=== PATIENT | male | born 1975 | race Caucasian/White ===

== ENCOUNTER 2016-10-30 09:37 | Emergency (ER) | payer SELFPAY ==
[~2016-10-30] VITALS: Ht 170.2 cm; Wt 80.6 kg
[~2016-10-30 09:37] MED LIST: DICL50 PO; MORP30SU PO
[2016-10-30 09:51] VITALS: BP 154/99; PULSE 73; RESP 18; TEMP 98.5; O2SAT 98
[2016-10-30] MEDS ORDERED: SULFAMETHOXAZOLE-TRIMETHOPRIM DS 800-160 MG TAB PO ONE (10:30)
[2016-10-30] MEDS ORDERED: KETOROLAC TROMETHAMINE 60 MG/2 ML (IM) VIAL IM ONE (10:30)
[2016-10-30] MEDS ORDERED: CEPHALEXIN MONOHYDRATE 500 MG CAP PO ONE (10:30)
[2016-10-30] MEDS ORDERED: ULTR50TA5 PO (10:47)
[2016-10-30] MEDS ORDERED: IBUP-232 PO (10:47)
[2016-10-30] MEDS ORDERED: BACT800T5 PO (10:47)
[2016-10-30] MEDS ORDERED: CEPH-460 PO (10:47)
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
[2016-10-31] MEDS ORDERED: METH40TA PO (02:56)
== END 2016-10-30 10:55 | disposition home or self-care (01) ==
LOC: PHED 09:37
DX: L02.01 Cutaneous abscess of face (principal); L03.211 Cellulitis of face
CPT/HCPCS: 96372; 99283; J1885

== ENCOUNTER 2016-10-31 02:39 | Observation (INO) | payer SELFPAY ==
[~2016-10-31] VITALS: Ht 170.2 cm; Wt 86.3 kg
[2016-10-31] VITALS (11 sets, daily range): BP systolic 102–164; BP diastolic 60–92; PULSE 55–98; RESP 14–18; TEMP 97–100.3; O2SAT 96–100
[~2016-10-31 02:39] MED LIST changes: +BACT800T5 PO; +CEPH-460 PO; -DICL50 PO; +IBUP-232 PO; -MORP30SU PO; +ULTR50TA5 PO
[2016-10-31] MEDS ORDERED: METH40TA PO (02:56)
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
[2016-10-31] MEDS ORDERED: ACETAMINOPHEN 325 MG TAB PO ONE (03:00)
[2016-10-31] MEDS ORDERED: SODIUM CHLOR 0.9% 1000 ML INJ 1,000 ML IV ONE ×2 (03:00→04:30)
[2016-10-31] MEDS ORDERED: CLINDAMYCIN INJ 900 MG in SODIUM CHLORIDE 0.9% INJ 100 ML IV ONE (03:00)
[2016-10-31] MEDS ORDERED: KETOROLAC TROMETHAMINE 30 MG/ML (IVP) VIAL IVP ONE (03:00)
[2016-10-31] MEDS ORDERED: SODIUM CHLORIDE 0.9% FLUSH 5 ML FLUSH IVF PRN ×2 (03:15→04:45)
[2016-10-31 03:20] LABS: AUTOMATED NEUTROPHIL # 10.2 TH/MM3 (1.8-7.7); BASOPHIL # 0.1 TH/MM3 (0-0.2); BASOPHIL % 0.8 % (0.0-2.0); EOSINOPHIL # 0.3 TH/MM3 (0-0.4); EOSINOPHIL % 1.8 % (0.0-4.0); HEMATOCRIT 40.7 % (39.0-51.0); LYMPH % 21.9 % (9.0-44.0); LYMPHOCYTE # 3.3 TH/MM3 (1.0-4.8); MEAN CELL VOLUME 83.3 FL (80.0-100.0); MEAN CORPUSCULAR HEMOGLOBIN 27.1 PG (27.0-34.0); MEAN CORPUSCULAR HGB CONC 32.5 % (32.0-36.0); MONO % 6.7 % (0.0-8.0); NEUT % 68.8 % (16.0-70.0); PLATELET COUNT 307 TH/MM3 (150-450); RED BLOOD COUNT 4.89 MIL/MM3 (4.50-5.90); RED CELL DISTRIBUTION WIDTH 14.4 % (11.6-17.2); WHITE BLOOD COUNT 14.9 TH/MM3 (4.0-11.0)
[2016-10-31 03:23] LABS: HEMO FLAGS AUTO DIFF
[2016-10-31 03:24] LABS: POTASSIUM 3.1 MEQ/L (3.5-5.1)
[2016-10-31 03:27] LABS: BICARBONATE 25.5 MEQ/L (21.0-32.0)
[2016-10-31 03:39] LABS: PLATELET ESTIMATE SMEAR NORMAL (NORMAL); PLATELET MORPHOLOGY CLUMPED (NORMAL); SCAN/DIFF AUTO DIFF CONFIRMED
[2016-10-31] MEDS ORDERED: IOHEXOL 350 MG/ML 10 ML VIAL (for RAD DIAG) IV ONE (04:09)
--- NOTE | 2016-10-31 04:28 | RADHPO ---
EXAM DATE/TIME: 10/31/2016 03:51 [facility] COMPARISON: No previous studies available for comparison. INDICATIONS : Left sided face and neck swelling. IV CONTRAST: 94 cc Omnipaque 350 (iohexol) IV RADIATION DOSE: 15.48 CTDIvol (mGy) MEDICAL HISTORY : Hypertension. SURGICAL HISTORY : None. ENCOUNTER: Initial ACUITY: 1 day PAIN SCALE: 8/10 LOCATION: Left neck TECHNIQUE: Volumetric scanning of the neck was performed. Using automated exposure control and adjustment of th e mA and/or kV according to patient size, radiation dose was kept as low as reasonably achievable to obtain optimal diagnostic quality images. FINDINGS: There is subcutaneous induration at the left side of the face, beginning superiorly in the left abelardo xillary region and along the edge of the nose and extending inferiorly along the left side of the man dible. Within the induration adjacent to the left mandible is a small low attenuation area that measu res about 6 x 8 mm in size, series 401 image 40. This is suspect for a small abscess in the superfici al margin is just a few millimeters beneath the skin. No other abscess seen but there is considerable obscuration of the area from the patient's metallic dental work. No bone destruction seen. Visualized paranasal sinuses are clear. No lymphadenopathy demonstrated. rway patent. Visualized lung apices are clear. CONCLUSION: Rather broad area of cellulitis of the left side of the face and with a subcentimeter superficial abs cess at the level of the mandible. Red Anderson MD on October 31, 2016 at 4:22 Board Certified Radiologist. This report was verified electronically.
[2016-10-31] MEDS ORDERED: VANCOMYCIN INJ 1,000 MG in SODIUM CHLOR 0.9% 250 ML INJ 250 ML IV ONE (04:30)
[2016-10-31] MEDS ORDERED: Vancomycin Consult Pharmacy 1 EA OTHER SCH (05:00)
[2016-10-31] MEDS ORDERED: ACETAMINOPHEN 325 MG TAB PO PRN (05:00)
[2016-10-31] MEDS ORDERED: ACETAMINOPHEN/HYDROcodone 325 MG/5 MG TAB PO PRN (05:00)
[2016-10-31] MEDS ORDERED: SODIUM CHLORIDE 0.9% FLUSH 5 ML FLUSH FLUSH PRN (05:00)
[2016-10-31] MEDS ORDERED: BISACODYL 10 MG SUPP PR PRN (05:00)
[2016-10-31] MEDS ORDERED: ONDANSETRON HCL 4 MG/2 ML VIAL IVP PRN (05:00)
[2016-10-31] MEDS: MORPHINE SULFATE 4 MG/ML INJ IV PRN ×5 (05:46→22:04)
[2016-10-31] MEDS: AMPICILLIN-SULBACTAM INJ 3 GM in SODIUM CHLORIDE 0.9% INJ 100 ML IV SCH ×4 (06:43→22:03)
[2016-10-31] MEDS: SODIUM CHLOR 0.9% 1000 ML INJ 1,000 ML IV SCH ×2 (07:20→22:03)
[2016-10-31] MEDS: SODIUM CHLORIDE 0.9% FLUSH 5 ML FLUSH FLUSH SCH ×2 (08:58→20:18)
[2016-10-31] MEDS ORDERED: SODIUM CHLORIDE 0.9% FLUSH 5 ML FLUSH IVF SCH (09:00)
[2016-10-31] MEDS ORDERED: METHADONE HCL 10 MG TAB PO SCH (09:00)
[2016-10-31] MEDS ORDERED: POTASSIUM CHLORIDE 10 MEQ CONTROLLED RELEASE TAB PO ONE (13:30)
--- NOTE | 2016-10-31 13:37 | HHI.HP ---
HPI Service [facility] Hospitalists Primary Care Physician No Primary Care Physician Admission Diagnosis (L) facial cellulitis, subcentimeter abscess Diagnoses: Chief Complaint: Facial swelling Travel History International Travel<30 Days: No Contact w/Intl Traveler <30 Da: No Traveled to Known Affected Are: No History of Present Illness Patient is a 40-year-old gentleman with history of skin infections who did come the hospital with 3 days of left facial swelling after an apparent pimple popped in his left side of his mouth. Patient says that he had increasing pain and swelling and took some antibiotics which were prescribed in the emergency room visit but noted that the swelling got worse so he came back to the emergency room. Patient did have a CT of the face which did show quite a bit of soft tissue swelling and a subcentimeter abscess which prompted the emergency room doctor to continue with plans for observation in the hospital and IV antibiotics. Patient had severe pain which was 10 out of 10 and relieved with IV morphine. He does use methadone and is prescribed this for methadone clinic. He has chronic neck pain had previously been on high doses of narcotics. He notes no fever or chills. He has a girlfriend with whom he lives with has similar rash underneath her arm where she shaves. His face does appear to have some follicular changes in the left side of his face around his good as well as a lot of inflammation and edema in the face leading up to the suborbital area. Patient's been recommended for further IV antibiotics Review of Systems Constitutional: DENIES: Diaphoretic episodes, Fatigue, Fever, Weight gain, Weight loss, Chills, Dizziness, Change in appetite, Night Sweats Endocrine: DENIES: Heat/cold intolerance, Polydipsia, Polyuria, Polyphagia Ears, nose, mouth, throat: DENIES: Tinnitus, Hearing loss, Vertigo, Nasal discharge, Oral lesions, Throat pain, Hoarseness, Ear Pain, Running Nose, Epistaxis, Sinus Pain, Toothache, Odynophagia Respiratory: DENIES: Apneas, Cough, Snoring, Wheezing, Hemoptysis, Sputum production, Shortness of breath Cardiovascular: DENIES: Chest pain, Palpitations, Syncope, Dyspnea on Exertion , PND, Lower Extremity Edema, Orthopnea, Claudication Gastrointestinal: DENIES: Abdominal pain, Black stools, Bloody stools, Constipation, Diarrhea, Nausea, Vomiting, Difficulty Swallowing, Anorexia Genitourinary: DENIES: Sexual dysfunction, Urinary frequency, Urinary incontinence, Urgency, Hematuria, Dysuria, Nocturia, Penile Discharge, Testicular Pain, Testicular Swelling Integumentary: DENIES: Abnormal pigmentation, Nail changes, Pruritus, Rash Hematologic/lymphatic: DENIES: Bruising, Lymphadenopathy Immunologic/allergic: DENIES: Eczema, Urticaria Neurologic: DENIES: Abnormal gait, Headache, Localized weakness, Paresthesias, Seizures, Speech Problems, Tremor, Poor Balance Psychiatric: DENIES: Anxiety, Confusion, Mood changes, Depression, Hallucinations, Agitation, Suicidal Ideation, Homicidal Ideation, Delusions Past Family Social History Past Medical History Chronic methadone Past Surgical History Dental Reported Medications reviewed in the EMR Allergies: Coded Allergies: Bee Sting (Verified Allergy, Severe, Anaphylaxis, 10/31/16) Active Ordered Medications reviewed in the EMR Family History Girlfriend has same skin changes Parents healthy Social History cocaine, tobacco Physical Exam Vital Signs Vital Signs Date Time Temp Pulse Resp B/P Pulse Ox O2 Delivery O2 Flow Rate FiO2 10/31/16 10:18 97.1 59 17 124/88 99 10/31/16 09:55 55 14 102/60 100 Room Air 10/31/16 09:21 98 21 10/31/16 07:00 64 18 121/67 100 Room Air 10/31/16 06:42 16 10/31/16 06:01 98 21 10/31/16 05:50 98.0 79 16 109/64 99 Room Air 10/31/16 04:34 97.9 65 16 119/63 Room Air 10/31/16 02:40 85 10/31/16 02:39 100.3 85 18 153/86 98 Physical Exam GENERAL: This is a well-nourished, well-developed patient, in no apparent distress. SKIN: left facial swelling, left crusting follicular lesion on side of mouth No rashes, ecchymoses or lesions. Cool and dry. HEAD: Atraumatic. Normocephalic. No temporal or scalp tenderness. EYES: Pupils equal round and reactive. Extraocular motions intact. No scleral icterus. No injection or drainage. ENT: Nose without bleeding, purulent drainage or septal hematoma. Throat without erythema, tonsillar hypertrophy or exudate. Uvula midline. Airway patent. NECK: Trachea midline. No JVD or lymphadenopathy. Supple, nontender, no meningeal signs. CARDIOVASCULAR: Regular rate and rhythm without murmurs, gallops, or rubs. RESPIRATORY: Clear to auscultation. Breath sounds equal bilaterally. No wheezes , rales, or rhonchi. GASTROINTESTINAL: Abdomen soft, non-tender, nondistended. No hepato-splenomegaly , or palpable masses. No guarding. MUSCULOSKELETAL: Extremities without clubbing, cyanosis, or edema. No joint tenderness, effusion, or edema noted. No calf tenderness. Negative Homans sign bilaterally. NEUROLOGICAL: Awake and alert. Cranial nerves II through XII intact. Motor and sensory grossly within normal limits. Five out of 5 muscle strength in all muscle groups. Normal speech. Laboratory Laboratory Tests Test 10/31/16 03:00 White Blood Count 14.9 Red Blood Count 4.89 Hemoglobin 13.3 Hematocrit 40.7 Mean Corpuscular Volume 83.3 Mean Corpuscular Hemoglobin 27.1 Mean Corpuscular Hemoglobin 32.5 Concent Red Cell Distribution Width 14.4 Platelet Count 307 Mean Platelet Volume 8.3 Neutrophils (%) (Auto) 68.8 Lymphocytes (%) (Auto) 21.9 Monocytes (%) (Auto) 6.7 Eosinophils (%) (Auto) 1.8 Basophils (%) (Auto) 0.8 Neutrophils # (Auto) 10.2 Lymphocytes # (Auto) 3.3 Monocytes # (Auto) 1.0 Eosinophils # (Auto) 0.3 Basophils # (Auto) 0.1 CBC Comment AUTO DIFF Differential Comment AUTO DIFF CONFIRMED Platelet Estimate NORMAL Platelet Morphology Comment CLUMPED Red Cell Morphology Comment NORMAL Sodium Level 139 Potassium Level 3.1 Chloride Level 104 Carbon Dioxide Level 25.5 Anion Gap 10 Blood Urea Nitrogen 11 Creatinine 0.98 Estimat Glomerular Filtration 84 Rate Random Glucose 99 Lactic Acid Level 1.2 Calcium Level 8.0 Date/Time Procedure Status Source Growth 10/31/16 03:07 Aerobic Blood Culture Received Blood Peripheral Pending 10/31/16 03:07 Anaerobic Blood Culture Received Blood Peripheral Pending 10/31/16 02:54 Gram Stain Received Wound Face Pending 10/31/16 02:54 Wound Culture Received Wound Face Pending Result Diagram: 10/31/1629910/31/16299 Imaging Last Impressions Neck CT 10/31/16302 Signed Impressions: Service Date/Time: Monday, October 31, 2016 03:51 - CONCLUSION: Rather broad area of cellulitis of the left side of the face and with a subcentimeter superficial abscess at the level of the mandible. Red Anderson MD Assessment and Plan Problem List: (1) Facial cellulitis ICD Code: L03.211 Status: Acute Plan: folliculitis and cellulitis, with small abscess likely strep/staph Continue Vanco, Unasyn, follow up cultures Continue pain medication with IV morphine for now Continue home methadone (2) Hypokalemia ICD Code: E87.6 Status: Acute Plan: Replace and follow trend Assessment and Plan Plan of care to be determined by Hospital course Discussed Condition With Patient, girlfriend, Catherine Olivo RN, MD Oct 31, 2016 13:37
[2016-10-31] MEDS ORDERED: NALOXONE HCL 0.4 MG/ML AMP IV PRN (17:00)
[2016-10-31] MEDS ORDERED: traMADol HCL 50 MG TAB PO PRN (17:00)
[2016-10-31] MEDS ORDERED: VANCOMYCIN 1,000 MG/NS 250 ML IV SCH ×2 (17:00)
[2016-11-01] MEDS ORDERED: INFLUENZA VIRUS VACCINE (QUADRIVALENT) 0.5 ML SYR IM ONE (10:00)
[2016-11-01] MEDS ORDERED: CLIN1CAP6 PO (16:40)
[2016-11-01] MEDS ORDERED: AUGM875T PO (16:40)
[2016-11-01] MEDS ORDERED: PHARMACY ORDERED LAB XX ONE (16:45)
== END 2016-10-31 22:35 | disposition left against medical advice (07) ==
LOC: PHED 02:39 → INTOOBSV 04:44 → PHEDA 04:44 → PHEDH 08:39 → PH3B 10:00
PROVIDERS: ADMIT Hospitalist; ATTEND Hospitalist
DX: L03.211 Cellulitis of face (principal); L73.9 Follicular disorder, unspecified; B95.62 Methicillin resistant Staphylococcus aureus infection as the cause of diseases classified elsewhere; E87.6 Hypokalemia; I10 Essential (primary) hypertension; F11.90 Opioid use, unspecified, uncomplicated; G89.29 Other chronic pain; M54.2 Cervicalgia; F32.9 Major depressive disorder, single episode, unspecified
CPT/HCPCS: 70491; 80048; 83605; 85025; 86403; 87040; 87070; 87186; 87205; 96361; 96365; 96375; 99285; G0378; J0295; J1885; J2270; J3370; J7030; J7050; Q9967

== ENCOUNTER 2016-11-01 14:05 | Inpatient (IN) | payer SELFPAY ==
[~2016-11-01] VITALS: Ht 170.2 cm; Wt 83.0 kg
[~2016-11-01 14:05] MED LIST changes: +METH40TA PO
[2016-11-01 14:08] VITALS: BP 163/93; PULSE 74; RESP 16; TEMP 99.2; O2SAT 100
[2016-11-01] MEDS ORDERED: SODIUM CHLOR 0.9% 1000 ML INJ 1,000 ML IV ONE ×2 (14:29)
[2016-11-01] MEDS ORDERED: VANCOMYCIN INJ 1,000 MG in SODIUM CHLOR 0.9% 250 ML INJ 250 ML IV STA (14:33)
[2016-11-01] MEDS ORDERED: AMPICILLIN-SULBACTAM INJ 3 GM in SODIUM CHLORIDE 0.9% INJ 100 ML IV ONE (14:45)
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
[2016-11-01 14:56] VITALS: O2SAT 98
[2016-11-01 14:56] LABS: AUTOMATED NEUTROPHIL # 5.1 TH/MM3 (1.8-7.7); BASOPHIL # 0.2 TH/MM3 (0-0.2); BASOPHIL % 2.5 % (0.0-2.0); EOSINOPHIL # 0.4 TH/MM3 (0-0.4); EOSINOPHIL % 4.9 % (0.0-4.0); HEMATOCRIT 38.4 % (39.0-51.0); HEMO FLAGS DIFF FINAL; LYMPH % 19.4 % (9.0-44.0); LYMPHOCYTE # 1.4 TH/MM3 (1.0-4.8); MEAN CELL VOLUME 82.5 FL (80.0-100.0); MEAN CORPUSCULAR HEMOGLOBIN 27.7 PG (27.0-34.0); MEAN CORPUSCULAR HGB CONC 33.5 % (32.0-36.0); MONO % 5.5 % (0.0-8.0); NEUT % 67.7 % (16.0-70.0); PLATELET COUNT 278 TH/MM3 (150-450); RED BLOOD COUNT 4.65 MIL/MM3 (4.50-5.90); RED CELL DISTRIBUTION WIDTH 13.6 % (11.6-17.2); WHITE BLOOD COUNT 7.5 TH/MM3 (4.0-11.0)
[2016-11-01 15:16] LABS: APTT (PATIENT) 30.8 SEC (24.3-30.1); INTERNATIONAL NORMALIZED RATIO 0.9 RATIO; PROTHROMBIN TIME - PATIENT 10.4 SEC (9.8-11.6)
[2016-11-01 15:24] LABS: CHLORIDE 108 MEQ/L (98-107); POTASSIUM 3.9 MEQ/L (3.5-5.1); SODIUM (NA) 144 MEQ/L (136-145)
[2016-11-01 15:39] LABS: ANION GAP 8 MEQ/L (5-15); BICARBONATE 28.2 MEQ/L (21.0-32.0); BLOOD UREA NITROGEN 9 MG/DL (7-18); MAGNESIUM 2.4 MG/DL (1.5-2.5)
[2016-11-01 15:42] LABS: ALT (GPT) 10 U/L (12-78); AST (GOT) 8 U/L (15-37); GLOMERULAR FILTRATION RATE 138 ML/MIN (>89)
[2016-11-01 15:43] LABS: TOTAL BILIRUBIN ADULT 0.4 MG/DL (0.2-1.0)
[2016-11-01 15:44] LABS: ALKALINE PHOSPHATASE 46 U/L (45-117)
[2016-11-01] MEDS ORDERED: IOHEXOL 350 MG/ML 10 ML VIAL (for RAD DIAG) IV ONE (16:09)
--- NOTE | 2016-11-01 16:18 | RADHPO ---
EXAM DATE/TIME: 11/01/2016 15:53 [facility] COMPARISON: CT SOFT TISSUE NECK W CONTRAST, October 31, 2016, 3:51. INDICATIONS : Increasing left jaw swelling. IV CONTRAST: 75 cc Omnipaque 350 (iohexol) IV RADIATION DOSE: 14.75 CTDIvol (mGy) MEDICAL HISTORY : Hypertension. SURGICAL HISTORY : None. ENCOUNTER: Initial ACUITY: 2 days PAIN SCALE: 4/10 LOCATION: Right facial TECHNIQUE: Volumetric scanning of the neck was performed. Using automated exposure control and adjustment of th e mA and/or kV according to patient size, radiation dose was kept as low as reasonably achievable to obtain optimal diagnostic quality images. FINDINGS: Today's exam is compared to the prior study from yesterday. There has been no new or significant harman ges. There continues to be edema and soft tissue swelling along the left mandible area. The previousl y described 6 mm tiny fluid collection is no longer seen. No definite loculated fluid collections are seen to suggest a drainable abscess. The appearance continues to suggest diffuse cellulitis. The man dible is uninvolved. CONCLUSION: Stable diffuse soft tissue swelling along the left mandible characteristic for cellulitis. No new or significant changes. Gamaliel Sylvester MD on November 01, 2016 at 16:14 Board Certified Radiologist. This report was verified electronically.
[2016-11-01 16:37] VITALS: BP 150/85; PULSE 66; RESP 18; O2SAT 98
[2016-11-01] MEDS ORDERED: AUGM875T PO (16:40)
[2016-11-01] MEDS ORDERED: CLIN1CAP6 PO (16:40)
== END 2016-11-01 17:40 | disposition left against medical advice (07) | DRG 603 ==
LOC: PHED 14:05 → PHEDA 16:23
PROVIDERS: ADMIT Hospitalist; ATTEND Hospitalist
DX: L03.211 Cellulitis of face (principal); I10 Essential (primary) hypertension; M19.041 Primary osteoarthritis, right hand; F32.9 Major depressive disorder, single episode, unspecified; F14.90 Cocaine use, unspecified, uncomplicated; Z91.030 Bee allergy status
CPT/HCPCS: 70491; 80053; 83605; 83735; 84100; 85025; 85610; 85730; 87040; 96365; J0295; J3370; J7030; J7050; Q9967

== ENCOUNTER 2018-03-02 10:47 | Emergency (ER) | payer SELFPAY ==
[~2018-03-02] VITALS: Ht 170.2 cm; Wt 92.1 kg
[~2018-03-02 10:47] MED LIST changes: +AUGM875T PO; -CEPH-460 PO; +CLIN300C5 PO; +IBUP1TAB7 PO; +TRAM50 PO; -ULTR50TA5 PO
[2018-03-02 10:50] VITALS: BP 131/79; PULSE 70; RESP 16; TEMP 98; O2SAT 97
[2018-03-02] MEDS ORDERED: METH40TA PO (10:59)
[2018-03-02] MEDS ORDERED: CLIN300C5 PO (11:12)
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
[2018-03-02] MEDS ORDERED: CLINDAMYCIN PHOS 600 MG/4 ML VIAL IM ONE (11:15)
== END 2018-03-02 11:35 | disposition home or self-care (01) ==
LOC: PHEFT 10:47
DX: L02.411 Cutaneous abscess of right axilla (principal); F32.9 Major depressive disorder, single episode, unspecified; I10 Essential (primary) hypertension
CPT/HCPCS: 96372